=== PATIENT | male | born 1985 ===

== ENCOUNTER 2017-05-22 13:10 | Emergency (ER) | payer OTHER ==
[2017-05-22 13:15] VITALS: BMI 30.9
[2017-05-22 13:16] VITALS: TEMP 98
--- NOTE | 2017-05-22 13:53 | ED PDOC ---
HPI: General Adult Time Seen by Provider: 05/22/17 13:16 Chief Complaint (Nursing): ENT Problem Chief Complaint (Provider): Swelling and Numbness to Left Ear Lobe History Per: Patient History/Exam Limitations: no limitations Onset/Duration Of Symptoms: Days Current Symptoms Are (Timing): Still Present Additional Complaint(s): Tyshawn Zepeda, a 32 year old male, presents to the ED for swelling and pain to his left ear lobe. The patient reports that yesterday he took his gauge earring out and noted the swelling and numbness to his b/l ear lobe greater on the left. Denies fever discharge and trauma. Past Medical History Reviewed: Historical Data, Nursing Documentation, Vital Signs Vital Signs: Last Vital Signs Temp 98.0 F 05/22/17 13:13 Pulse Resp BP Pulse Ox - Medical History PMH: No Chronic Diseases - Surgical History Surgical History: No Surg Hx - Family History Family History: States: Unknown Family Hx - Social History Current smoker - smoking cessation education provided: No Ex-Smoker (has not smoked in the last 12 months): No Alcohol: None Drugs: Denies - Home Medications Home Medications: Ambulatory Orders Medication Instructions Recorded Cephalexin [cephalexin] 500 mg PO Q6 #28 cap 05/22/17 - Allergies Allergies/Adverse Reactions: Allergies Allergy/AdvReac Type Severity Reaction Status Date / Time No Known Allergies Allergy Verified 05/22/17 13:13 Review of Systems ROS Statement: Except As Marked, All Systems Reviewed And Found Negative Constitutional: Negative for: Fever ENT: Positive for: Other (swelling and numbness to left ear lobe) Physical Exam - Reviewed Nursing Documentation Reviewed: Yes Vital Signs Reviewed: Yes - Physical Exam Appears: Positive for: Non-toxic, No Acute Distress Head Exam: Positive for: ATRAUMATIC, NORMAL INSPECTION, NORMOCEPHALIC Skin: Positive for: Normal Color, Warm, Dry. Negative for: Rash Eye Exam: Positive for: Normal appearance, EOMI, PERRL ENT: Positive for: TM Is/Are (non erythematous non bulging b/l). Negative for: Normal ENT Inspection (dry blood noted to both ear lobes minimal swelling; No fluctuance or induration; No mastoid tenderness b/l ears) Neurologic/Psych: Positive for: Alert, Oriented, Gait Medical Decision Making Medical Decision Makin Initial Plan 32 y/o male presenting with swelling and numbness ot b/l ear lobes Initial Plan: * Reevaluation Upon provider evaluation patient is medicaly stable and requires no further treatment in the ED at this time. Patient will be discharged home with instructions to to apply bacitracin ointment to affected area and to follow up with [facility] on Wednesday for wound check. _ Scribe Attestation Documented by Megan Sweet acting as a scribe for Mauricio Doss PA-C. Scribe Attestation All medical record entries made by the Scribe were at my direction and personally dictated by me. I have reviewed the chart and agree that the record accurately reflects my personal performance of the history, physical exam, medical decision making, and the department course for this patient. I have also personally directed, reviewed, and agree with the discharge instructions and disposition. Disposition - Clinical Impression Clinical Impression: Infection of skin of both ear lobes - Patient ED Disposition Is Patient to be Admitted: No Counseled Patient/Family Regarding: Studies Performed, Diagnosis, Need For Followup - Disposition Referrals: [facility] [Outside] Disposition: Routine/Home Disposition Time: 13:30 Condition: STABLE Prescriptions: Cephalexin [cephalexin] 500 mg PO Q6 #28 cap Instructions: Acute Wound Care (ED) Forms: [employer] (Irish), [facility] ED School/Work Excuse Print Language: [place]OOK ISLANDER - POA Present On Arrival: None
== END 2017-05-22 13:36 | disposition home or self-care (01) ==
LOC: H.ER 13:10
DX: L08.9 Local infection of the skin and subcutaneous tissue, unspecified (principal)

== ENCOUNTER 2017-07-11 14:47 | Emergency (ER) | payer OTHER ==
[2017-07-11 14:47] VITALS: BMI 30.9
[2017-07-11 15:06] VITALS: BP 145/89; PULSE 89; RESP 16; TEMP 98; O2SAT 99
--- NOTE | 2017-07-11 15:43 | RAD ---
PROCEDURE: Cervical Spine Radiographs. HISTORY: Pain. COMPARISON: None. FINDINGS: BONES: There is straightening of the cervical spine with loss of normal cervical lordosis. Vertebral alignment is normal. Vertebral height is maintained. The craniocervical junction is normal. The atlantoaxial joint is normal. DISC SPACES: Normal. SOFT TISSUES: Normal. No prevertebral soft tissue swelling. OTHER FINDINGS: None. IMPRESSION: No acute fracture, spondylolisthesis or significant degenerative disc disease. Straightening of the cervical spine may be positional or related to muscle spasm.
--- NOTE | 2017-07-11 15:54 | ED PDOC ---
HPI: General Adult Time Seen by Provider: 07/11/17 15:07 Chief Complaint (Nursing): Upper Extremity Problem/Injury Chief Complaint (Provider): Neck Pain History Per: Patient History/Exam Limitations: no limitations Onset/Duration Of Symptoms: Hrs (since this morning) Have you had recent travel within the past 21 days to any of the following countries: [place], [place], [place] or [place]?: No Current Symptoms Are (Timing): Still Present Additional Complaint(s): 32 year old male presents to ED with complaints of atraumatic left sided neck pain since waking up this morning and has no past medical history. Notes pain radiates to his left shoulder. (-) fever, numbness, or tingling. PCP: Non [facility] Past Medical History Reviewed: Historical Data, Nursing Documentation, Vital Signs Vital Signs: Last Vital Signs Temp 98.0 F 07/11/17 15:03 Pulse 89 07/11/17 15:03 Resp 16 07/11/17 15:03 BP 145/89 07/11/17 15:03 Pulse Ox 99 07/11/17 15:54 - Medical History PMH: No Chronic Diseases - Surgical History Surgical History: No Surg Hx - Family History Family History: States: Unknown Family Hx - Social History Current smoker - smoking cessation education provided: No Drugs: Denies - Home Medications Home Medications: Ambulatory Orders Medication Instructions Recorded Cephalexin [cephalexin] 500 mg PO Q6 #28 cap 05/22/17 Cyclobenzaprine [Cyclobenzaprine 10 mg PO Q8 PRN #10 tab 07/11/17 HCl] Ibuprofen [Motrin] 600 mg PO Q6 PRN #30 tab 07/11/17 - Allergies Allergies/Adverse Reactions: Allergies Allergy/AdvReac Type Severity Reaction Status Date / Time No Known Allergies Allergy Verified 05/22/17 13:13 Review of Systems ROS Statement: Except As Marked, All Systems Reviewed And Found Negative Constitutional: Negative for: Fever Musculoskeletal: Positive for: Neck Pain (left-sided), Shoulder Pain (pain radiates to left shoulder) Neurological: Negative for: Numbness Physical Exam - Reviewed Nursing Documentation Reviewed: Yes Vital Signs Reviewed: Yes - Physical Exam Appears: Positive for: Non-toxic, No Acute Distress Skin: Positive for: Normal Color, Warm, Dry Eye Exam: Positive for: Normal appearance, EOMI, PERRL ENT: Positive for: Normal ENT Inspection Neck: Positive for: Normal, Supple Respiratory: Positive for: Normal Breath Sounds. Negative for: Respiratory Distress Back: Positive for: Other (left sided paracervical muscle tenderness. left sided trapezius muscle tenderness). Negative for: Normal Inspection, L CVA Tenderness, R CVA Tenderness, Vertebral Tenderness Extremity: Positive for: Normal ROM. Negative for: Deformity Neurologic/Psych: Positive for: Alert, Oriented. Negative for: Motor/Sensory Deficits - ECG O2 Sat by Pulse Oximetry: 99 (RA) Pulse Ox Interpretation: Normal Medical Decision Making Medical Decision Makin Initial impression: neck pain Initial plan: * XR CERVICAL SPINE * Ibuprofen 600mg PO * Re-eval 1550 XR: no acute bone abnormality Patient is stable for discharge home. Scribe Attestation: Documented by Gillian Mccurdy, acting as a scribe for Mauricio Doss PA-C. Provider Scribe Attestation: All medical record entries made by the Scribe were at my direction and personally dictated by me. I have reviewed the chart and agree that the record accurately reflects my personal performance of the history, physical exam, medical decision making, and the department course for this patient. I have also personally directed, reviewed, and agree with the discharge instructions and disposition. Disposition - Clinical Impression Clinical Impression: Muscle spasm - Patient ED Disposition Is Patient to be Admitted: No - Disposition Referrals: [facility] [Outside] Disposition: Routine/Home Disposition Time: 15:52 Condition: IMPROVED Prescriptions: Cyclobenzaprine [Cyclobenzaprine HCl] 10 mg PO Q8 PRN #10 tab PRN Reason: Muscle Spasm Ibuprofen [Motrin] 600 mg PO Q6 PRN #30 tab PRN Reason: Pain Instructions: Muscle Spasm (ED) Forms: [facility] (Vietnamese), [facility] ED School/Work Excuse
== END 2017-07-11 16:02 | disposition home or self-care (01) ==
LOC: H.ER 14:47
DX: M62.838 Other muscle spasm (principal)

== ENCOUNTER 2017-09-24 15:39 | Emergency (ER) | payer SELFPAY ==
[2017-09-24 15:39] VITALS: BMI 30.9
[2017-09-24] MEDS ORDERED: Sodium Chloride 0.9% 2,000 ML IV STA (16:20)
--- NOTE | 2017-09-24 16:23 | ED PDOC ---
HPI: Abdomen Time Seen by Provider: 09/24/17 16:21 Chief Complaint (Nursing): GI Problem Chief Complaint (Provider): vomiting/headache History Per: Patient (32 y/o male h/o DM here with vomiting today. Has had had nausea and intermittent x 3 days. Notes improvement of headache with excedrin but returns. No fevers/chills/cough.) Past Medical History Reviewed: Historical Data, Nursing Documentation, Vital Signs Vital Signs: Last Vital Signs Temp 98.2 F 09/24/17 21:16 Pulse 82 09/24/17 21:16 Resp 16 09/24/17 21:16 BP 133/76 09/24/17 21:16 Pulse Ox 98 09/24/17 21:16 - Medical History PMH: Diabetes - Family History Family History: States: Unknown Family Hx - Home Medications Home Medications: Ambulatory Orders Medication Instructions Recorded Cephalexin [cephalexin] 500 mg PO Q6 #28 cap 05/22/17 Cyclobenzaprine [Cyclobenzaprine 10 mg PO Q8 PRN #10 tab 07/11/17 HCl] Ibuprofen [Motrin] 600 mg PO Q6 PRN #30 tab 07/11/17 Famotidine [Pepcid] 20 mg PO BID #10 tab 09/24/17 metFORMIN [glucOPHAGE] 500 mg PO BID #30 tab 09/24/17 - Allergies Allergies/Adverse Reactions: Allergies Allergy/AdvReac Type Severity Reaction Status Date / Time No Known Allergies Allergy Verified 05/22/17 13:13 Review of Systems ROS Statement: Except As Marked, All Systems Reviewed And Found Negative Gastrointestinal: Positive for: Vomiting Neurological: Positive for: Headache Physical Exam - Reviewed Nursing Documentation Reviewed: Yes Vital Signs Reviewed: Yes - Physical Exam Appears: Positive for: Well, Non-toxic, No Acute Distress Head Exam: Positive for: ATRAUMATIC, NORMAL INSPECTION, NORMOCEPHALIC Skin: Positive for: Normal Color, Warm, DRY Eye Exam: Positive for: EOMI, Normal appearance, PERRL ENT: Positive for: Normal ENT Inspection Neck: Positive for: Normal, Painless ROM Cardiovascular/Chest: Positive for: Regular Rate, Rhythm Respiratory: Positive for: CNT, Normal Breath Sounds Gastrointestinal/Abdominal: Positive for: Normal Exam, Soft, Tenderness (mild epigastric tenderness) Back: Positive for: Normal Inspection Extremity: Positive for: Normal ROM Neurologic/Psych: Positive for: Alert, Oriented - Laboratory Results Result Diagrams: 09/24/17 16:35 09/24/17 18:50 - ECG ECG Rhythm: Positive for: Sinus Rhythm (nsr 99bpm no ectopy no acute changes.) O2 Sat by Pulse Oximetry: 97 - Progress ED Course And Treament: ACCUCHECK: 377 NS 2 LITERS WIDE OPEN ZOFRAN 4MG IV PEPCID 20 MG IV X 1 DOSE INSULIN 4 MG IV X 1 DOSE repeat blood glucose 226 d/w patient importance of f/u with pmd to adjust medications. will write rx of metformin 500mg bid (patient takes currently) and advised f/u in 2 days Disposition - Clinical Impression Clinical Impression: Hyperglycemia - Patient ED Disposition Is Patient to be Admitted: No - Disposition Referrals: [facility] [Outside] Disposition: Routine/Home Disposition Time: 20:20 Condition: FAIR Prescriptions: Famotidine [Pepcid] 20 mg PO BID #10 tab metFORMIN [glucOPHAGE] 500 mg PO BID #30 tab Instructions: Hyperglycemia, Adult (DC), Diabetes and Diet Forms: [employer] (Lao)
[2017-09-24 16:44] LABS: BASO # 0.1 K/uL (0.0-0.2); BASO % 0.7 % (0.0-2.0); EOS % 0.6 % (0.0-4.0); HEMOGLOBIN 16.3 g/dL (12.0-18.0); LYMPH # 2.1 K/uL (1.0-4.3); LYMPH % 26.3 % (20.0-40.0); MEAN CELL VOLUME 87.6 fl (80.0-94.0); MEAN CORPUSCULAR HEMOGLOBIN 29.4 pg (27.0-31.0); MEAN CORPUSCULAR HGB CONC 33.6 g/dL (33.0-37.0); MEAN PLATELET VOLUME 10.2 fl (7.2-11.7); MONO # 0.4 K/uL (0.0-0.8); MONO % 5.5 % (0.0-10.0); NEUT # 5.5 K/uL (1.8-7.0); NEUT % 66.9 % (50.0-75.0); NRBC % 0.1 % (0.0-0.0); RBC 5.53 Mil/uL (4.40-5.90); RED CELL DISTRIBUTION WIDTH 12.8 % (11.5-14.5); WHITE BLOOD COUNT 8.2 K/uL (4.8-10.8)
[2017-09-24 16:47] LABS: VENOUS BLOOD GAS BASE EXCESS -0.9 mmol/L (0.0-2.0); VENOUS BLOOD GAS PCO2 44 mmHg (40-60); VENOUS BLOOD GAS PO2 60 mm/Hg (30-55); VENOUS BLOOD PH 7.36 (7.32-7.43)
[2017-09-24 16:49] LABS: URINE BILIRUBIN NEGATIVE (NEGATIVE); URINE BLOOD NEGATIVE (NEGATIVE); URINE CLARITY CLEAR (Clear); URINE COLOR STRAW (YELLOW); URINE GLUCOSE (UA) >=500 mg/dL (Normal); URINE LEUKOCYTE ESTERASE NEG Leu/uL (Negative); URINE PROTEIN NEGATIVE (NEGATIVE); URINE UROBILINOGEN 0.2-1.0 mg/dL (0.2-1.0)
[2017-09-24 16:59] LABS: ALB/GLOB RATIO 1.3 (1.0-2.1); ALBUMIN 4.3 g/dL (3.5-5.0); ALT/SGPT 56 U/L (21-72); AST/SGOT 36 U/L (17-59); BLOOD UREA NITROGEN 13 mg/dl (9-20); GFR AFRICAN-AMERICAN > 60; GFR NON-AFRICAN AMERICAN > 60; LIPASE 158 U/L (23-300)
--- NOTE | 2017-09-24 17:29 | CT ---
PROCEDURE: CT HEAD WITHOUT CONTRAST. HISTORY: headache COMPARISON: None available. TECHNIQUE: Axial computed tomography images were obtained through the head/brain without intravenous contrast. Radiation dose: Total exam DLP = 826.9 mGy-cm. This CT exam was performed using one or more of the following dose reduction techniques: Automated exposure control, adjustment of the mA and/or kV according to patient size, and/or use of iterative reconstruction technique. FINDINGS: HEMORRHAGE: No intracranial hemorrhage. BRAIN: No mass effect or edema. No atrophy or chronic microvascular ischemic changes. VENTRICLES: Unremarkable. No hydrocephalus. CALVARIUM: Unremarkable. PARANASAL SINUSES: Left maxillary sinus and anterior ethmoid air cell opacification. MASTOID AIR CELLS: Unremarkable as visualized. No inflammatory changes. OTHER FINDINGS: None. IMPRESSION: Normal CT of the Head.
[2017-09-24 18:24] VITALS: PULSE 82
[2017-09-24 18:58] LABS: VENOUS BLOOD GAS BASE EXCESS -1.6 mmol/L (0.0-2.0); VENOUS BLOOD GAS PCO2 38 mmHg (40-60); VENOUS BLOOD GAS PO2 82 mm/Hg (30-55); VENOUS BLOOD PH 7.39 (7.32-7.43)
[2017-09-24 19:16] LABS: BLOOD UREA NITROGEN 12 mg/dl (9-20); CALCIUM 8.3 mg/dL (8.4-10.2); GFR AFRICAN-AMERICAN > 60; GFR NON-AFRICAN AMERICAN > 60
[2017-09-24] MEDS ORDERED: Insulin Regular 100 units/ml IVP ONE (19:41)
[2017-09-24] MEDS ORDERED: Insulin Regular 100 units/ml ONE (19:54)
[2017-09-24 21:17] VITALS: BP 133/76; RESP 16; TEMP 98.2
--- NOTE | 2017-09-25 08:41 | CARD ---
APPROVED REPORT EKG Measurement Heart [id number] <Conclusion> Normal sinus rhythm Nonspecific T wave abnormality Abnormal ECG
[2017-09-26 15:45] VITALS: O2SAT 97
== END 2017-09-24 21:18 | disposition home or self-care (01) ==
LOC: H.ER 15:39
DX: E11.65 Type 2 diabetes mellitus with hyperglycemia (principal); Z79.84 Long term (current) use of oral hypoglycemic drugs
CPT/HCPCS: 70450; 80048; 80053; 81003; 82803; 82948; 83690; 84484; 85025; 93005; 96361; 96374; 96375; 99284; J2405; J7040

== ENCOUNTER 2017-10-20 00:30 | Emergency (ER) | payer SELFPAY ==
[2017-10-20 00:30] VITALS: BMI 30.9
[2017-10-20 00:40] VITALS: RESP 16; O2SAT 98
[2017-10-20] MEDS ORDERED: Sodium Chloride 0.9% 1,000 ML IV STA ×2 (00:56→01:42)
--- NOTE | 2017-10-20 00:59 | ED PDOC ---
HPI: Abdomen Time Seen by Provider: 10/20/17 00:41 Chief Complaint (Nursing): Abdominal Pain Chief Complaint (Provider): abdominal pain History Per: Patient History/Exam Limitations: no limitations Onset/Duration Of Symptoms: Hrs (12) Current Symptoms Are (Timing): Still Present Location Of Pain/Discomfort: Epigastric Associated Symptoms: Nausea, Vomiting Last Bowel Movement: Today Additional Complaint(s): 32 y/o male presents with upper abdominal pain x 12 hours. Associated 3 episodes of vomiting. Patient states he felt like he was going to have diarrhea but nothing happened when he tried; last BM yesterday afternoon. Patient also reports right lower back pain x months from an injury while lifting weights at the gym. Denies fever, cough, congestion, chest pain, shortness of breath, palpitations, urinary symptoms, bowel/bladder incontinence. Past Medical History Reviewed: Historical Data, Nursing Documentation, Vital Signs Vital Signs: Last Vital Signs Temp 98 F 10/20/17 03:21 Pulse 106 H 10/20/17 03:21 Resp 16 10/20/17 00:37 BP 126/75 10/20/17 03:21 Pulse Ox 98 10/20/17 03:21 - Medical History PMH: Diabetes - Surgical History Surgical History: No Surg Hx - Family History Family History: States: Unknown Family Hx - Living Arrangements Living Arrangements: Alone - Social History Current smoker - smoking cessation education provided: No Alcohol: None Drugs: Denies - Home Medications Home Medications: Ambulatory Orders Medication Instructions Recorded metFORMIN [glucOPHAGE] 500 mg PO BID #30 tab 09/24/17 Dicyclomine [Bentyl] 20 mg PO TID PRN #15 tab 10/20/17 Famotidine [Pepcid] 20 mg PO BID #10 tab 10/20/17 Ondansetron [Zofran] 4 mg PO Q8H PRN #10 tab 10/20/17 - Allergies Allergies/Adverse Reactions: Allergies Allergy/AdvReac Type Severity Reaction Status Date / Time No Known Allergies Allergy Verified 05/22/17 13:13 Review of Systems ROS Statement: Except As Marked, All Systems Reviewed And Found Negative Gastrointestinal: Positive for: Nausea, Vomiting, Abdominal Pain Physical Exam - Reviewed Nursing Documentation Reviewed: Yes Vital Signs Reviewed: Yes - Physical Exam Appears: Positive for: Well, Non-toxic, Uncomfortable (vomiting) Head Exam: Positive for: ATRAUMATIC, NORMAL INSPECTION, NORMOCEPHALIC Skin: Positive for: Normal Color Eye Exam: Positive for: Normal appearance ENT: Positive for: Normal ENT Inspection Cardiovascular/Chest: Positive for: Regular Rate, Rhythm Respiratory: Positive for: Normal Breath Sounds Gastrointestinal/Abdominal: Positive for: Bowel Sounds, Soft, Tenderness ( epigastric, RUQ; neg gilman's) Back: Positive for: Normal Inspection Extremity: Positive for: Normal ROM Neurologic/Psych: Positive for: Alert, Oriented - Laboratory Results Result Diagrams: 10/20/17 01:00 10/20/17 01:00 - ECG ECG: Positive for: Viewed By Me (reviewed by ED Attending) ECG Rhythm: Positive for: Sinus Tachycardia O2 Sat by Pulse Oximetry: 98 - Progress ED Course And Treament: labs, urine, IV fluids, IV zofran, IV toradol, CT abd/pelvis EXAM: CT Abdomen and Pelvis With Intravenous Contrast CLINICAL HISTORY: 32 years old, male; Pain; Abdominal pain; Localized; Right upper quadrant (ruq) ; Additional info: Right upper abd pain TECHNIQUE: Axial computed tomography images of the abdomen and pelvis with intravenous contrast. All CT scans at this facility use one or more dose reduction techniques, viz.: automated exposure control; ma/kV adjustment per patient size (including targeted exams where dose is matched to indication; i.e. head); or iterative reconstruction technique. Coronal and sagittal reformatted images were created and reviewed. CONTRAST: 95 mL of [id number] administered intravenously. COMPARISON: No relevant prior studies available. FINDINGS: Lung bases: No acute findings. ABDOMEN: Liver: Mildly enlarged. Fatty infiltration. Gallbladder and bile ducts: No calcified stones. No ductal dilation. Pancreas: No ductal dilation. No mass. Spleen: No splenomegaly. Adrenals: No mass. Kidneys and ureters: No mass. No hydronephrosis. Stomach and bowel: Fluid within small bowel. Fluid/loose stool within RIGHT colon. Apparent mild mural/fold thickening vs underdistention of few jejunal loops. No associated inflammatory stranding. No obstruction. PELVIS: Appendix: Normal caliber. No inflammation. Bladder: Unremarkable. Reproductive: Unremarkable as visualized. ABDOMEN and PELVIS: Intraperitoneal space: No significant fluid collection. No free air. Bones/joints: No acute fracture. Soft tissues: Unremarkable. Vasculature: Unremarkable. No aneurysm. Lymph nodes: No pathologically enlarged lymph nodes. IMPRESSION: 1. Possible mild enteritis. Clinical correlation is needed. 2. Incidental/non-acute findings are described above. On re-eval, patient states pain resolved. Tolerating PO Patient educated on findings, discharged with rx zofran, pepcid, zofran Advised fluids, bland diet Follow up PMD 2-3 days. Return precautions given. Disposition - Clinical Impression Clinical Impression: Gastroenteritis - Patient ED Disposition Is Patient to be Admitted: No - Disposition Referrals: [facility] [Outside] Disposition: Routine/Home Disposition Time: 03:18 Condition: IMPROVED Prescriptions: Dicyclomine [Bentyl] 20 mg PO TID PRN #15 tab PRN Reason: Pain, Mild (1-3) Famotidine [Pepcid] 20 mg PO BID #10 tab Ondansetron [Zofran] 4 mg PO Q8H PRN #10 tab PRN Reason: Nausea/Vomiting Instructions: Viral Gastroenteritis, Adult (DC) Forms: [employer] (Slovak), [facility] ED School/Work Excuse
[2017-10-20 01:15] LABS: BASO # 0.1 K/uL (0.0-0.2); BASO % 0.5 % (0.0-2.0); EOS % 0.2 % (0.0-4.0); HEMOGLOBIN 17.2 g/dL (12.0-18.0); LYMPH # 0.7 K/uL (1.0-4.3); LYMPH % 4.5 % (20.0-40.0); MEAN CELL VOLUME 85.9 fl (80.0-94.0); MEAN CORPUSCULAR HEMOGLOBIN 29.4 pg (27.0-31.0); MEAN CORPUSCULAR HGB CONC 34.3 g/dL (33.0-37.0); MEAN PLATELET VOLUME 10.3 fl (7.2-11.7); MONO # 0.8 K/uL (0.0-0.8); MONO % 5.3 % (0.0-10.0); NEUT # 13.2 K/uL (1.8-7.0); NEUT % 89.5 % (50.0-75.0); NRBC % 0.1 % (0.0-0.0); PLATELET COUNT 229 K/uL (130-400); RBC 5.83 Mil/uL (4.40-5.90); RED CELL DISTRIBUTION WIDTH 12.9 % (11.5-14.5); WHITE BLOOD COUNT 14.8 K/uL (4.8-10.8)
[2017-10-20 01:31] LABS: ALB/GLOB RATIO 1.3 (1.0-2.1); ALBUMIN 4.4 g/dL (3.5-5.0); ALT/SGPT 49 U/L (21-72); AST/SGOT 28 U/L (17-59); BLOOD UREA NITROGEN 12 mg/dl (9-20); CALCIUM 9.2 mg/dL (8.4-10.2); GFR AFRICAN-AMERICAN > 60; GFR NON-AFRICAN AMERICAN > 60; LIPASE 68 U/L (23-300)
[2017-10-20 01:38] LABS: ABG ALLEN TEST YES; ARTERIAL BLOOD GAS HCO3 26.9 mmol/L (21-28); ARTERIAL BLOOD GAS HEMOGLOBIN 15.8 g/dL (11.7-17.4); ARTERIAL BLOOD GAS O2 CAPACITY 21.2 mL/dL (16-24); ARTERIAL BLOOD GAS O2 CONTENT 21.2 ML/dL (15-23); ARTERIAL BLOOD GAS O2 SAT 99.8 % (95-98); ARTERIAL BLOOD GAS PCO2 41 mm/Hg (35-45); ARTERIAL BLOOD GAS PH 7.43 (7.35-7.45); ARTERIAL BLOOD GAS PO2 91 mm/Hg (80-100); ARTERIAL BLOOD GAS TCO2 28.5 mmol/L (22-28)
[2017-10-20] MEDS ORDERED: Iohexol 300 100 ML IJ ONE (01:52)
[2017-10-20] MEDS ORDERED: Sodium Chloride 0.9% 100 ML ONE (01:52)
[2017-10-20 02:33] LABS: ANISOCYTOSIS SLIGHT; LYMPHOCYTE 4 % (20-50); MONOCYTE 7 % (0-10); NEUTROPHIL 89 % (42-75); PLATELET ESTIMATE NORMAL (NORMAL); TOTAL CELLS COUNTED 100
--- NOTE | 2017-10-20 02:55 | CT ---
EXAM: CT Abdomen and Pelvis With Intravenous Contrast CLINICAL HISTORY: 32 years old, male; Pain; Abdominal pain; Localized; Right upper quadrant (ruq); Additional info: Right upper abd pain TECHNIQUE: Axial computed tomography images of the abdomen and pelvis with intravenous contrast. All CT scans at this facility use one or more dose reduction techniques, viz.: automated exposure control; ma/kV adjustment per patient size (including targeted exams where dose is matched to indication; i.e. head); or iterative reconstruction technique. Coronal and sagittal reformatted images were created and reviewed. CONTRAST: 95 mL of [id number] administered intravenously. COMPARISON: No relevant prior studies available. FINDINGS: Lung bases: No acute findings. ABDOMEN: Liver: Mildly enlarged. Fatty infiltration. Gallbladder and bile ducts: No calcified stones. No ductal dilation. Pancreas: No ductal dilation. No mass. Spleen: No splenomegaly. Adrenals: No mass. Kidneys and ureters: No mass. No hydronephrosis. Stomach and bowel: Fluid within small bowel. Fluid/loose stool within RIGHT colon. Apparent mild mural/fold thickening vs underdistention of few jejunal loops. No associated inflammatory stranding. No obstruction. PELVIS: Appendix: Normal caliber. No inflammation. Bladder: Unremarkable. Reproductive: Unremarkable as visualized. ABDOMEN and PELVIS: Intraperitoneal space: No significant fluid collection. No free air. Bones/joints: No acute fracture. Soft tissues: Unremarkable. Vasculature: Unremarkable. No aneurysm. Lymph nodes: No pathologically enlarged lymph nodes. IMPRESSION: 1. Possible mild enteritis. Clinical correlation is needed. 2. Incidental/non-acute findings are described above.
[2017-10-20 02:56] LABS: URINE BILIRUBIN NEGATIVE (NEGATIVE); URINE BLOOD NEGATIVE (NEGATIVE); URINE CLARITY CLEAR (Clear); URINE COLOR YELLOW (YELLOW); URINE GLUCOSE (UA) >=500 mg/dL (Normal); URINE LEUKOCYTE ESTERASE NEG Leu/uL (Negative); URINE PROTEIN NEGATIVE (NEGATIVE); URINE UROBILINOGEN 0.2-1.0 mg/dL (0.2-1.0)
[2017-10-20 03:22] VITALS: BP 126/75; PULSE 106; TEMP 98
--- NOTE | 2017-10-21 12:27 | CARD ---
APPROVED REPORT EKG Measurement Heart [id number] <Conclusion> Sinus tachycardia Otherwise normal ECG
== END 2017-10-20 03:36 | disposition home or self-care (01) ==
LOC: H.ER 00:30
DX: K52.9 Noninfective gastroenteritis and colitis, unspecified (principal); E11.9 Type 2 diabetes mellitus without complications; Z79.84 Long term (current) use of oral hypoglycemic drugs
CPT/HCPCS: 74177; 80053; 81003; 82803; 82948; 83690; 85025; 93005; 96361; 96374; 96375; 99284; J1885; J2405; J7040; Q9967